=== PATIENT | male | born 1980 | race Caucasian/White ===

== ENCOUNTER → 2024-12-29 13:34 | Outpatient (CLI) | payer BC, SELFPAY ==
--- NOTE | 2024-12-29 13:44 | DI.MRI.S_ITS ---
PROCEDURE: MR SHOULDER RT WO CON INDICATIONS: R shoulder pain TECHNIQUE: Noncontrast oblique coronal T2 fast spin echo with fat saturation, oblique sagittal T1 spin echo and T2 fast spin echo with fat saturation, axial T1 spin echo and T2 fast spin echo with fat saturation through the shoulder. COMPARISON: None. FINDINGS: Image quality: Excellent. Rotator cuff: Mild increased T2 weighted signal of the distal supraspinatus and subscapularis without tear or myotendinous retraction. No muscular fatty atrophy. The infraspinatus, and teres minor are normal. Bones and bursae: [id number] degenerative changes of the acromioclavicular joint with joint space narrowing, osteophytes, subchondral edema and capsular hypertrophy. Type 1 flat acromion. Mild degenerative changes of the glenohumeral joint with mild diffuse cartilage thinning in the humeral head and glenoid and of the superior aspect of the glenoid labrum without definitive tear. No bone marrow contusions or fractures. The acromion demonstrates conventional anatomy, without an os acromiale. No significant subacromial-subdeltoid or subcoracoid bursal fluid is present. Capsule and soft tissues: The long head of the biceps tendon demonstrates normal location and morphology. IMPRESSION: Mild tendinopathy distal supraspinatus and subscapularis without tear or retraction. Mild to moderate degenerative changes as discussed above. Dictated by: Chandler Fallon M.D. on 12/30/2024 at 10:40 Approved by: Chandler Fallon M.D. on 12/30/2024 at 11:02
== END ==
LOC: MRI 13:34
PROVIDERS: PCP Family Medicine; Referring Provider Family Medicine; Visit Provider Family Medicine
DX: M25.611 Stiffness of right shoulder, not elsewhere classified (principal); M67.911 Unspecified disorder of synovium and tendon, right shoulder; R29.898 Other symptoms and signs involving the musculoskeletal system
CPT/HCPCS: 73221

== ENCOUNTER → 2025-01-23 11:52 | Outpatient (CLI) | payer BC, SELFPAY ==
[2025-01-23 13:05] LABS: Add Manual Diff / Slide Review NO; Hematocrit 42.0 % (41-53); Hemoglobin 14.5 g/dL (13.5-17.5); Lymphocytes Absolute Auto 900 /uL (1100-4500); Mean Corpuscular HGB Conc 34.5 % (30-36); Mean Corpuscular Hemoglobin 30.7 PG (26-34); Mean Corpuscular Volume 89.1 fL (80-100); Platelet Count 201 X10^3/uL (150-400)
[2025-01-23 13:13] LABS: Hemoglobin A1C% w Est Avg Glu 5.0 % (4.0-6.0)
[2025-01-23 13:28] LABS: Alanine Aminotransferase 21 IU/L (<50); Albumin 4.8 g/dL (3.5-5.0); Albumin Globulin Ratio 1.7 (1.0-2.8); Alkaline Phosphatase 70 U/L (38-126); Calcium 9.7 mg/dL (8.4-10.2); Carbon Dioxide 27 mmol/L (22-32); Chloride 101 mmol/L (98-107); Cholesterol 204 mg/dL (140-199); Globulin 2.8 g/dL (1.7-4.1); Glucose 98 mg/dL (70-99); HDL Cholesterol 43 mg/dL (40-60); HEMOLYSIS < 15 (0-50); Potassium 4.2 mmol/L (3.4-5.1); Sodium 138 mmol/L (137-145); Total Protein 7.6 g/dL (6.3-8.2); Triglycerides 140 mg/dL (35-150)
[2025-01-23 13:32] LABS: Blood Urea Nitrogen 16 mg/dL (9-20); Estimated Glomerular Filt Rate > 60 mL/min (>60)
== END ==
PROVIDERS: PCP Family Medicine; Referring Provider Family Medicine; Visit Provider Family Medicine
DX: E78.2 Mixed hyperlipidemia (principal); F43.9 Reaction to severe stress, unspecified
CPT/HCPCS: 36415; 80053; 80061; 83036; 85025